=== PATIENT | female | born 1995 | race Asian ===

== ENCOUNTER 2018-04-02 00:13 | Emergency (ER) | payer OTHER ==
[~2018-04-02] VITALS: Ht 157.5 cm; Wt 63.0 kg
[2018-04-02 02:27] VITALS: BP 135/81; TEMP 98.1
== END 2018-04-02 02:27 | disposition home or self-care (01) ==
LOC: ED 00:13
DX: O23.41 Unspecified infection of urinary tract in pregnancy, first trimester (principal); Z3A.01 Less than 8 weeks gestation of pregnancy
CPT/HCPCS: 81000; 81025; 87088; 87210; 87490; 87590; 99284